=== PATIENT | female | born 1975 | race Caucasian/White ===

== ENCOUNTER 2017-05-05 08:17 | Inpatient (IN) | payer BC, OTHER ==
[~2017-05-05] VITALS: Ht 172.7 cm; Wt 58.5 kg
[2017-05-08] MEDS ORDERED: BUPRENORPHINE HCL 2 MG TAB.SUBL SL PRN (15:00)
[2017-05-08] MEDS ORDERED: HYDROXYZINE PAMOATE 25 MG CAPSULE PO PRN (15:00)
[2017-05-08] MEDS ORDERED: DIAZEPAM 5 MG TABLET PO PRN (15:00)
[2017-05-08] MEDS ORDERED: IBUPROFEN 600 MG TABLET PO PRN (15:00)
[2017-05-08] MEDS ORDERED: ONDANSETRON 4 MG/2 ML VIAL IM PRN (15:00)
[2017-05-08] MEDS ORDERED: THIAMINE HCL 200 MG/2 ML VIAL IM ONE (15:00)
[2017-05-08] MEDS ORDERED: diphenhydrAMINE 50 MG CAPSULE PO PRN (15:00)
[2017-05-08] MEDS ORDERED: CLONIDINE HCL 0.1 MG TABLET PO PRN (15:00)
[2017-05-08] MEDS ORDERED: METHOCARBAMOL 750 MG TABLET PO PRN (15:00)
[2017-05-08] MEDS ORDERED: DIAZEPAM 10 MG TABLET PO PRN ×2 (15:00)
[2017-05-08] MEDS ORDERED: MAG HYDROX/AL HYDROX/SIMETH 30 ML LIQUID UDC PO PRN (15:00)
[2017-05-08] MEDS ORDERED: ACETAMINOPHEN 325 MG TABLET PO PRN (15:00)
[2017-05-08] MEDS ORDERED: DICYCLOMINE HCL 20 MG TABLET PO PRN (15:00)
[2017-05-08] MEDS ORDERED: LORAZEPAM 2 MG/1 ML VIAL IM PRN (15:00)
[2017-05-08] MEDS ORDERED: LOPERAMIDE HCL 2 MG CAPSULE PO PRN ×2 (15:00)
[2017-05-08] MEDS ORDERED: ONDANSETRON ODT 4 MG TAB.RAPDIS SL PRN (15:00)
--- NOTE | 2017-05-08 15:30 | NUR ---
Intake assessment Pt seen down in intake, pt VS are stable, pt is cleared to come up to unit. Dr Wilcox notified of admission.
[2017-05-08 15:40] VITALS: BP 102/69
--- NOTE | 2017-05-08 15:40 | NUR ---
Admission Note Pt was admitted for ETOH, benzo and opiate dependence and methamphetamine abuse. Pt ambulated on to the unit with SERVER PROGRAMMER, during skin assessment, pt stated that she has a shingles rash. Dr Wilcox notified and pt placed on contact precautions. Pt noted to have several scabs on her bilateral hands and and open wound to her medial left ankle. Pt VS were: BP 102/69, HR 10, T: 98.3, R: 16, SpO2: 95% on RA. Pt appears to be intoxicated, COWS and CIWA not done per Dr Wilcox. Pt states she is 5'8'' and per scale she weighed 129 pounds. Pt stated that she has lost 20 pounds recently. Pt denies any allergies. Pt states that she has a PMHx of anxiety, depression and shingles. Pt states that she doesn't remember the exact date of her LBM, she says she had IBS-C. Pt states her LMP was 05/04/17. Pt denies any history of seizures. Pt states that she does not know her family medical history due to being adopted. Pt states that she does not have any children. Meds reconciled in med rec, pt brought in 2 bottles of medication. Pt states that she does not want the pneumococcal vaccine. Pt agreed to HIV testing. Pt states that her PCP is Dr Pérez and that she does not want him to be contacted regarding her admission. Pt is a poor historian, pt states that her is the person who has been dosing out her alcohol and other substances. Pt reports using the following substances, her confirmed the dosing of the followin. ETOH- Drinks 750-1500ml of wine or 350-500ml of vodka daily x about a month, last drink was a cup of vodka on 05/08/17. 2. Xanax- 4-6mg PO daily x about a month, last use was 1mg on 05/08/17. 3. Subutex- 12mg SL daily x about a month, last use was 4mg on 05/08/17. 4, methamphetamine- $30 via inhalation daily x about a month, last use was 05/05/17. Pt states that she smokes 1-2 packs of cigarettes a day since the age of 15. UDS was positive for benzo and methamphetamines. HCG was negative. Pt states that she went to [facility] detox about a year ago, and recently relapsed. Pt states that she was sober for 15 years, then relapsed shortly after she got . Pt stated that she has only been to a detox once, however pt also stated that she has been to multiple facilities, d/t pt's intoxicated state, she is unable to verify this information at this time. Pt oriented to unit and policies/procedures. Pt has no complaints at this time. Will continue to monitor pt. All needs addressed at this time. Pt placed on fall and seizure precautions.
[2017-05-08] MEDS ORDERED: GABA-534 PO (15:55)
[2017-05-08] MEDS ORDERED: MULT1TAB73 PO (15:55)
[2017-05-08] MEDS ORDERED: PARO25TA16 PO (15:55)
[2017-05-08] MEDS ORDERED: GABA600T2 PO (15:55)
[2017-05-08] MEDS ORDERED: LACT1CAP71 PO (15:55)
[2017-05-08] MEDS ORDERED: QUET100T PO (15:55)
[2017-05-08 16:00] VITALS: BP 104/72
[2017-05-08 16:29] LABS: *URINE HCG, QUAL NEGATIVE (NEGATIVE)
[2017-05-08 16:49] LABS: *AMPHETAMINE, URINE POSITIVE (NEGATIVE); *BARBITURATE, URINE NEGATIVE (NEGATIVE); *CANNABINOID, URINE NEGATIVE (NEGATIVE); *COCCAINE, URINE NEGATIVE (NEGATIVE); *OPIATE, URINE NEGATIVE (NEGATIVE); *PHENCYCLIDINE SCREEN,URINE NEGATIVE (NEGATIVE)
[2017-05-08] MEDS: DIAZEPAM 10 MG TABLET PO SCH ×2 (17:22→22:12)
--- NOTE | 2017-05-08 19:09 | NUR ---
End of shift note Pt was admitted for benzo, etoh, opiate and methamphetamine dependence. Pt denies any allergies, is a full code and on a regular diet. Pt has a PMhx of anxiety, depression and is on contact isolation for shingles. Pt started her valium taper and is scheduled to begin a subutex taper at 2100. Pt is currently sleeping in her bed. Pt is on fall and seizure precautions. All needs addressed at this time. SBAR report given to oncoming nurse. Pt drank 500ml of fluids, refused dinner, but had a few snacks. Pt had a recent COWS of 7 and CIWA of 11. Addendum: 05/09/17 at 0741 by MARY BURKETT RN Data Center Architect referral ordered by Dr Wilcox due weight loss of 20 pounds and BMI of 19.6
--- NOTE | 2017-05-08 19:50 | NUR ---
START OF SHIFT Received report from day shift nurse. Pt is lying in bed resting. She is a 41 yo female admitted to [facility] today for ETOH, BZD, and opioid dependence. She is A&O and ambulatory. NKA, full code status, and on a regular diet. Pt has a PMH of shingles, hernia repair, ovarian procedure, right wrist surgery, anxiety, and depression. She is on contact isolation precautions for shingles that is being treated with valtrex. On admission pt reported drinking wine 750-1500mL or vodka 350-500mL day, xanax 4-6mg per day, subutex 12mg per day, and methamphetamine $30 worth per day. 5 day valium taper started today. 5 day subutex taper to start tonight. Pt hand tremors, anxiety, and moist skin. Tapers due tonight. Fall and seizure precautions in place. Bed is down with call light in reach.
[2017-05-08 20:27] LABS: BASOPHILS % (AUTO) 0.7 % (0.0-2.0); EOSINOPHILS # (AUTO) 0.2 K/uL (0.0-0.7); EOSINOPHILS % (AUTO) 3.9 % (0.0-7.0); HEMATOCRIT 42.6 % (37-47); HEMOGLOBIN 14.1 G/DL (12.0-16.0); LYMPHOCYTES # (AUTO) 1.6 K/UL (0.8-4.8); LYMPHOCYTES % (AUTO) 33.3 % (20.5-51.5); MEAN CORPUSCULAR HEMOGLOBIN 31.4 UUG (27.0-31.0); MEAN CORPUSCULAR HGB CONC 33 g/dL (32.0-37.0); MEAN CORPUSCULAR VOLUME 94.9 FL (81.0-99.0); MONOCYTES # (AUTO) 0.4 K/UL (0.1-1.30); MONOCYTES % (AUTO) 9.5 % (0.0-11.0); NEUTROPHILS # (AUTO) 2.5 K/UL (1.8-8.9); NEUTROPHILS % (AUTO) 52.6 % (38.5-71.5); PLATELET COUNT (AUTO) 225 K/UL (150-450); RED BLOOD CELL COUNT(AUTO) 4.49 MIL/UL (4.2-5.4); WHITE BLOOD COUNT (AUTO) 4.7 K/UL (4.0-11.2)
[2017-05-08 20:30] VITALS: BP 93/62
[2017-05-08 20:37] LABS: BILIRUBIN,TOTAL 0.9 mg/dL (0.2-1.0); CREATININE 0.8 mg/dL (0.6-1.3); MAGNESIUM 1.8 mg/dL (1.8-2.4); POTASSIUM 3.7 mmol/L (3.5-5.1)
[2017-05-08] MEDS ORDERED: BUPRENORPHINE HCL 2 MG TAB.SUBL SL SCH (21:00)
--- NOTE | 2017-05-08 21:00 | NUR ---
Subutex non-administered First subutex dose non-administered. Pt's COWS scores is 6. B/P 93/62 and HR 86.
[2017-05-08] MEDS: VALACYCLOVIR HCL 500 MG TABLET PO SCH (21:56)
[2017-05-08] MEDS: GABAPENTIN 300 MG CAPSULE PO SCH (22:12)
[2017-05-09] VITALS: BP 95/64
--- NOTE | 2017-05-09 | NUR ---
0000 CIWA and COWS deferred CIWA and COWS ordered Q4HWA. Pt is lying in bed resting with eyes closed. Respirations even and unlabored. Vital signs obtained. Safety measures in place.
[2017-05-09 04:00] VITALS: BP 90/60
--- NOTE | 2017-05-09 07:02 | NUR ---
END OF SHIFT Report provided to day shift nurse. Pt is lying in bed resting. She is a 41 yo female admitted to [facility] on 05/08 for ETOH, BZD, and opioid dependence. She is A&O and ambulatory. NKA, full code status, and on a regular diet. Pt has a PMH of shingles, hernia repair, ovarian procedure, right wrist surgery, anxiety, and depression. She is on contact isolation precautions for shingles that is being treated with valtrex. 5 day Ativan taper started 05/08. Subutex taper was scheduled to start at 2100 but was held due to COWS score not meeting criteria. Other scheduled medications administered. No PRN's given. Last COWS 6 and CIWA 7 before medication administration. She slept throughout the night for a total of 8 hours and drank 355mL. Encouraged fluids. Fall and seizure precautions in place. Bed is down with call light in reach.
--- NOTE | 2017-05-09 07:50 | NUR ---
START OF SHIFT NOTE Received report from night nurse, 41 year old female admitted to [facility] for ETOH, BENZO, and Opioid dependence. NKA, full code status, and on a regular diet. Pt has a PMH of shingles, hernia repair, ovarian procedure, right wrist surgery, anxiety, and depression. Pt is on 5 day Subutex. Per endorsement pt is on contact isolation precautions for shingles that is being treated with Valtrex. Per endorsement pt were not given any PRN and scheduled Subutex dose was held due to low COWS score. Last COWS-6, CIWA-7 slept for 8 hours. Received pt asleep in bed responsive to verbal and tactile stimuli. Breathing normal no SOB noted. Skin intact warm and dry to touch. All safety measures in place, Call light within reach. Will cont to monitor.
[2017-05-09 08:00] VITALS: BP 104/66
[2017-05-09] MEDS: GABAPENTIN 300 MG CAPSULE PO SCH ×3 (08:47→21:22)
[2017-05-09] MEDS: DIAZEPAM 10 MG TABLET PO SCH ×3 (08:47→21:20)
[2017-05-09] MEDS: MULTIVITAMINS,THERAPEUTIC TABLET PO SCH (08:47)
[2017-05-09] MEDS: FOLIC ACID 1 MG TABLET PO SCH (08:47)
[2017-05-09] MEDS: VALACYCLOVIR HCL 500 MG TABLET PO SCH ×2 (08:48→21:23)
[2017-05-09] MEDS: BUPRENORPHINE HCL 2 MG TAB.SUBL SL SCH ×3 (08:48→21:20)
[2017-05-09] MEDS: THIAMINE HCL 100 MG TABLET PO SCH (08:48)
[2017-05-09] MEDS ORDERED: TUBERCULIN,PURIF.PROT.DERIV. 5 TU/0.1 ML TEST ID ONE (09:00)
[2017-05-09] MEDS ORDERED: DIAZEPAM 10 MG TABLET PO SCH (09:00)
[2017-05-09] MEDS ORDERED: BUPRENORPHINE HCL 2 MG TAB.SUBL SL SCH (09:00)
[2017-05-09] MEDS: MIRALAX 17 GM POWD.PACK PO PRN (10:11)
--- NOTE | 2017-05-09 10:11 | NUR ---
PRN MIRALAX/BENTYL Pt is c/o of stomach cramps and constipation. Pt provided with non pharmacological intervention with no relief. Administered PRN Bentyl 20mg Po, Miralax Po as ordered. Will cont to monitor and reassess.
--- NOTE | 2017-05-09 11:11 | NUR ---
REASSESSMENT Pt reported medication effective stomach cramps subside medication effective, still no BM. Will cont to monitor.
[2017-05-09 12:00] VITALS: BP 107/62
[2017-05-09 16:00] VITALS: BP 90/60
--- NOTE | 2017-05-09 19:13 | NUR ---
END OF SHIFT NOTE Pt started on 5 days Subutex /5 day Valium taper tolerating well. Pt presented with anxiousness stomach cramps,constipation. Pt given PRN Bentyl/Miralax. Last CIWA-5, COWS-5. Pt rested most of the time. Pt is cont on contact isolation precautions for shingles that is being treated with Valtrex. Vital signs WNL. Encouraged PO fluids as tolerated. All needs met. Safety measures in place, Call light within reach. Pt endorsed to night nurse in stable condition.
--- NOTE | 2017-05-09 19:30 | NUR ---
START OF SHIFT Pt is a 41 year old female admitted for ETOH, BENZO, and Opioid dependence. NKA, full code status, and on a regular diet. Pt has a PMH of shingles, hernia repair, ovarian procedure, right wrist surgery, anxiety, and depression. Pt continues on Valium and Subutex taper as ordered,tolerating well. Per endorsement Pt is on contact isolation precautions for shingles and is being treated with Valtrex. Last CIWA-5, COWS-5. Encouraged PO fluids as tolerated. All needs met.All safety measures in place, Call light within reach.Will continue to monitor.
[2017-05-09 20:00] VITALS: BP 111/70
[2017-05-09] MEDS: QUETIAPINE FUMARATE 100 MG TABLET PO SCH (21:20)
[2017-05-10] VITALS: BP 95/60
[2017-05-10 04:00] VITALS: BP 92/58
--- NOTE | 2017-05-10 06:39 | NUR ---
END OF SHIFT Pt is a 41 year old female admitted for ETOH, BENZO, and Opioid dependence. NKA, full code status, and on a regular diet. Pt has a PMH of shingles, hernia repair, ovarian procedure, right wrist surgery, anxiety, and depression. Pt continues on Valium and Subutex taper as ordered,tolerating well. Pt is on contact isolation precautions for shingles and is being treated with Valtrex. Last CIWA-3, COWS-2. Encouraged PO fluids as tolerated.No PRN meds given,Pt slept 8 hrs,fluid intake was 300 mls,voided x 1. All needs met.All safety measures in place, Call light within reach.Will continue to monitor.
[2017-05-10 08:00] VITALS: BP 105/64
--- NOTE | 2017-05-10 08:03 | NUR ---
START OF SHIFT NOTE Received report from night nurse, Pt is 41 year old female admitted to [facility] for ETOH, BENZO, and Opioid dependence. NKA, full code status, and on a regular diet. Pt has a PMH of shingles, hernia repair, ovarian procedure, right wrist surgery, anxiety, and depression. Pt is cont on 5 day Subutex/ 5 day Valium taper. Pt is also cont on contact isolation precautions for shingles that is being treated with Valtrex. Per endorsement pt were not given any PRN, Last COWS-2, CIWA-3 slept for 8 hours. Pt received in room, alert and oriented x4, educated regarding plan of care for the day and medication regimen with good verbal understanding. Fall and seizure precautions observed and in place. Will continue to monitor.
[2017-05-10] MEDS: MULTIVITAMINS,THERAPEUTIC TABLET PO SCH (08:32)
[2017-05-10] MEDS: DIAZEPAM 5 MG TABLET PO SCH ×4 (08:32→21:59)
[2017-05-10] MEDS: THIAMINE HCL 100 MG TABLET PO SCH (08:32)
[2017-05-10] MEDS: FOLIC ACID 1 MG TABLET PO SCH (08:32)
[2017-05-10] MEDS: PAROXETINE HCL 20 MG TABLET PO SCH (08:32)
[2017-05-10] MEDS: GABAPENTIN 300 MG CAPSULE PO SCH ×3 (08:33→21:59)
[2017-05-10] MEDS: VALACYCLOVIR HCL 500 MG TABLET PO SCH ×2 (08:35→21:58)
[2017-05-10] MEDS ORDERED: BUPRENORPHINE HCL 2 MG TAB.SUBL SL SCH ×2 (09:00)
[2017-05-10] MEDS ORDERED: DIAZEPAM 10 MG TABLET PO SCH (09:00)
[2017-05-10 11:10] LABS: HEPATITIS B SURFACE AG Negative (Negative)
[2017-05-10 12:00] VITALS: BP 99/73
[2017-05-10] MEDS: BACLOFEN 10 MG TABLET PO SCH ×2 (14:18→21:59)
[2017-05-10] MEDS: BUPRENORPHINE HCL 2 MG TAB.SUBL SL SCH ×2 (14:19→21:59)
[2017-05-10 16:00] VITALS: BP 96/62
--- NOTE | 2017-05-10 19:08 | NUR ---
END OF SHIFT NOTE Pt cont on 5 days Subutex /5 day Valium taper tolerating well. Last CIWA-, COWS-5. Pt rested most of the time. Pt is cont on contact isolation precautions for shingles that is being treated with Valtrex no s/s of adverse reaction noted. Vital signs WNL. Encouraged PO fluids as tolerated. All needs met. Safety measures in place, Call light within reach. Pt endorsed to night nurse in stable condition. Addendum: 05/10/17 at 1919 by MELISSA MUSA LVN ERROR IN CHARTING Pt's last CI-, -4.
--- NOTE | 2017-05-10 19:30 | NUR ---
START OF SHIFT Pt is a 41 year old female admitted for ETOH, BENZO, and Opioid dependence. NKA, full code status, and on a regular diet. Pt has a PMH of shingles, hernia repair, ovarian procedure, right wrist surgery, anxiety, and depression. Pt continues on Valium and Subutex taper as ordered,tolerating well. Per endorsement Pt continues to be on contact isolation for shingles and is being treated with Valtrex. Last CIWA-5, COWS-5.Pt received resting in bed,in a stable condition.Encouraged PO fluids as tolerated. All needs met.All safety measures in place, Call light within reach.Will continue to monitor.
[2017-05-10 20:00] VITALS: BP 95/64
[2017-05-10] MEDS: QUETIAPINE FUMARATE 100 MG TABLET PO SCH (21:59)
[2017-05-11] VITALS: BP 92/59
[2017-05-11 04:00] VITALS: BP 80/57
--- NOTE | 2017-05-11 06:44 | NUR ---
END OF SHIFT Pt is a 41 year old female admitted for ETOH, BENZO, and Opioid dependence. NKA, full code status, and on a regular diet. Pt has a PMH of shingles, hernia repair, ovarian procedure, right wrist surgery, anxiety, and depression. Pt continues on Valium and Subutex taper as ordered,tolerating well. Per endorsement Pt continues to be on contact isolatio for shingles and is being treated with Valtrex. Last CIWA-1, COWS-1.Pt slept 9 hrs;fluid intake was 2802 mls,voided x 3.No PRN meds given. All needs met.All safety measures in place, Call light within reach.Will continue to monitor.
--- NOTE | 2017-05-11 07:35 | NUR ---
START OF SHIFT NOTE Received report from night nurse, Pt is 41 year old female admitted to [facility] for ETOH, BENZO, and Opioid dependence. NKA, full code status, and on a regular diet. Pt has a PMH of shingles, hernia repair, ovarian procedure, right wrist surgery, anxiety, and depression. Pt is cont on 5 day Subutex/ 5 day Valium taper. Pt is also cont on contact isolation precautions for shingles that is being treated with Valtrex. Per endorsement pt were not given any PRN, Last COWS-1, CIWA-1 slept for 9 hours. Pt received in room, alert and oriented x4, educated regarding plan of care for the day and medication regimen with good verbal understanding. Fall and seizure precautions observed and in place. Will continue to monitor.
[2017-05-11 08:00] VITALS: BP 100/62
[2017-05-11] MEDS: FOLIC ACID 1 MG TABLET PO SCH (08:53)
[2017-05-11] MEDS: VALACYCLOVIR HCL 500 MG TABLET PO SCH ×2 (08:54→21:12)
[2017-05-11] MEDS: MULTIVITAMINS,THERAPEUTIC TABLET PO SCH (08:54)
[2017-05-11] MEDS: PAROXETINE HCL 20 MG TABLET PO SCH (08:54)
[2017-05-11] MEDS: BACLOFEN 10 MG TABLET PO SCH ×2 (08:54→14:49)
[2017-05-11] MEDS: GABAPENTIN 300 MG CAPSULE PO SCH ×3 (08:54→21:03)
[2017-05-11] MEDS: DIAZEPAM 5 MG TABLET PO SCH ×3 (08:54→21:03)
[2017-05-11] MEDS: THIAMINE HCL 100 MG TABLET PO SCH (08:54)
[2017-05-11] MEDS: BUPRENORPHINE HCL 2 MG TAB.SUBL SL SCH ×3 (08:54→21:03)
[2017-05-11] MEDS ORDERED: BUPRENORPHINE HCL 2 MG TAB.SUBL SL SCH ×2 (09:00→15:00)
[2017-05-11] MEDS ORDERED: DIAZEPAM 5 MG TABLET PO SCH (09:00)
[2017-05-11] MEDS: MIRALAX 17 GM POWD.PACK PO PRN (09:02)
--- NOTE | 2017-05-11 09:02 | NUR ---
PRN MIRALAX Pt is c/o of constipation. Pt provided with non pharmacological intervention with no relief. Administered PRN Miralax Po as ordered. Will cont to monitor and reassess.
[2017-05-11 12:00] VITALS: BP 90/58
[2017-05-11 16:00] VITALS: BP 109/59
[2017-05-11] MEDS ORDERED: BISACODYL 10 MG SUPP.RECT RC PRN (16:30)
[2017-05-11] MEDS ORDERED: BISACODYL 5 MG TABLET.DR PO PRN (16:30)
[2017-05-11] MEDS ORDERED: FLEET ENEMA 133 ML BOTTLE RC PRN (16:30)
--- NOTE | 2017-05-11 18:50 | NUR ---
END OF SHIFT NOTE Pt cont on 5 days Subutex /5 day Valium taper tolerating well. Last CIWA-4, COWS-4. Pt was c/o of constipation PRN Miralax given as ordered. Will endorse to night nurse to follow up. Pt is cont on contact isolation precautions for shingles that is being treated with Valtrex no s/s of adverse reaction noted. Vital signs WNL. Encouraged PO fluids as tolerated. All needs met. Safety measures in place, Call light within reach. Pt endorsed to night nurse in stable condition.
--- NOTE | 2017-05-11 18:50 | NUR ---
START OF SHIFT NOTE: Patient endorsed to day shift nurse in stable condition. Report given. Patient is a 41 year old female admitted to [facility] for Benzodiazepines, Alcohol, Subutex, and Methamphetamines dependence on 05/08/2017 continue 5 Day Ativan and 5 Day Subutex Taper since 05/09/2017 which tolerated well without ASE. Patient reports NKA. Patient is on Full Code, Regular Diet. Patient is on Fall, continue on contact Isolation for Shingles and Seizures Precautions. PMH:" Anxiety, Depression, Shingles on Right Back, Hernia Repair, Ovarian Procedure, Right Wrist Surgery, Tobacco dependence, and Substance abuse". Upon endorsement, patient is alert and oriented x4, with steady gait. Speech is soft and clear. VS WNL. Respirations unlabored and even. Lungs Sounds are clear. Patient denies SOB and chest pain. Abdomen is soft and non-tender. Bowel Sounds active in all four quadrants. Skin is not intact. Patient has Shingles on right Back, patient is being treated with Valtrex which tolerated well without ASE. Patient has scabs on both hands, and open wound on the medial left ankle. Skin is warm and dry to touch. COWS 6, CIWA 7. Patient presented with anxiety, agitation, nervousness, tremors, barely sweating, restless legs, and fatigue. Patient denies SI/HI. Encouraged fluids as tolerated. All needs met. Safety measures on place. Call light within reach, bed in lowest position and locked, padded rails up bilaterally. Will continue to monitor closely. Addendum: 05/12/17 at 0232 by NORMA UMANZOR RN Patient endorsed by day shift nurse in stable condition. Report received.
[2017-05-11 20:00] VITALS: BP 102/67
[2017-05-11] MEDS ORDERED: DOCUSATE SODIUM 250 MG CAPSULE PO ONE (21:00)
[2017-05-11] MEDS: QUETIAPINE FUMARATE 100 MG TABLET PO SCH (21:03)
[2017-05-11] MEDS: BACLOFEN 20 MG TABLET PO SCH (21:03)
[2017-05-11] MEDS: DICYCLOMINE HCL 20 MG TABLET PO SCH (21:03)
[2017-05-12] VITALS: BP 91/58
[2017-05-12 04:00] VITALS: BP 96/58
--- NOTE | 2017-05-12 06:52 | NUR ---
END OF SHIFT NOTE: Patient endorsed to day shift nurse in stable condition. Report given. Patient is a 41 year old female admitted to [facility] for Benzodiazepines, Alcohol, Subutex, and Methamphetamines dependence on 05/08/2017, continue 5 Day Ativan and 5 Day Subutex Taper since 05/09/2017 which tolerated well without ASE. Patient reports NKA. Patient is on Full Code, Regular Diet. Patient is on Fal and Seizures Precautions. Patient continue contact Isolation for Shingles. Patients denies Seizures Hx r/t withdrawal from substances. Patient is calm and cooperative. Patient denies SOB, cough and chest pain. VS at 0400: T: 98.2; BP: 98/58; HR: 72; RR: 14; O2 SAT: 97%. Pain level: "0/10". Respirations unlabored and even. Patient denies SOB and chest pain. Skin is warm and dry to touch. Skin is not intact. Patient has Shingles on right Back, and he is being treated with Valtrex which tolerated well without ASE. Patient's healed scabs on both hands, and open wound on the medial left ankle. Last COWS 4, CIWA 3 at 0400. Last night nurse patient presented with the following symptoms of withdrawal: anxiety, agitation, nervousness, tremors that can be felt, diaphoresis, restless legs, and fatigue. Patient denies any SI/HI. No PRN Medications administrated last night nurse. Patient slept 6 hours, intake 2880 ml, voided x3. Encouraged patient to attend group therapies/sessions to learn new coping skills to prevent relapse. All needs met. Safety measures on place. Call light within reach, bed in lowest position and locked, padded rails up bilaterally rails up bilaterally
[2017-05-12 08:00] VITALS: BP 90/60
--- NOTE | 2017-05-12 08:15 | NUR ---
START OF SHIFT: RECEIVED PT A/O X 4. SHE STATES SHE IS MILDLY ANXIOUS AND HAS SOME MILD BODY ACHES AND STATES THE DETOX MEDS ARE EFFECTIVE. VALIUM/SUBUTEX TAPER IN PROGRESS. CIWA 1 COWS 2 SHE STATES HER APPETITE IS BETTER AND SHE IS SLEEPING OK. CONTACT ISOLATION NOTED FOR SHINGLES AND VALTREX GIVEN ORDERED. ENCOURAGED GROUP ATTENDANCE TO IMPROVE COPING SKILLS AND PREVENT RELAPSE. WILL CONTINUE TO MONITOR AND OFFER SUPPORT.
[2017-05-12] MEDS ORDERED: DIAZEPAM 5 MG TABLET PO SCH (09:00)
[2017-05-12] MEDS ORDERED: BUPRENORPHINE HCL 2 MG TAB.SUBL SL SCH (09:00)
[2017-05-12] MEDS: FOLIC ACID 1 MG TABLET PO SCH (09:43)
[2017-05-12] MEDS: DIAZEPAM 5 MG TABLET PO SCH ×2 (09:43→20:59)
[2017-05-12] MEDS: MULTIVITAMINS,THERAPEUTIC TABLET PO SCH (09:43)
[2017-05-12] MEDS: GABAPENTIN 300 MG CAPSULE PO SCH ×3 (09:43→20:58)
[2017-05-12] MEDS: DICYCLOMINE HCL 20 MG TABLET PO SCH ×3 (09:43→20:59)
[2017-05-12] MEDS: THIAMINE HCL 100 MG TABLET PO SCH (09:43)
[2017-05-12] MEDS: BUPRENORPHINE HCL 2 MG TAB.SUBL SL SCH ×2 (09:44→20:59)
[2017-05-12] MEDS: DOCUSATE SODIUM 250 MG CAPSULE PO SCH (09:44)
[2017-05-12] MEDS: PAROXETINE HCL 20 MG TABLET PO SCH (09:44)
[2017-05-12] MEDS: BACLOFEN 20 MG TABLET PO SCH ×3 (09:44→20:59)
[2017-05-12] MEDS: VALACYCLOVIR HCL 500 MG TABLET PO SCH ×2 (09:48→21:02)
[2017-05-12 12:00] VITALS: BP 114/68
[2017-05-12 16:00] VITALS: BP 118/70
--- NOTE | 2017-05-12 16:30 | NUR ---
1500 MEDS HELD. CIWA AND COWS DEFERRED AT 1600 PT WAS SLEEPING. CALL NARANJO IN REACH. BED LOW AND LOCKED.
--- NOTE | 2017-05-12 18:37 | NUR ---
START OF SHIFT NOTE: Patient endorsed by day shift nurse in stable condition. Report received. Patient is a 41 year old female admitted to [facility] for Benzodiazepines, Alcohol, Subutex, and Methamphetamines dependence on 05/08/2017, completed ordered 5 Day Ativan and 5 Day Subutex Taper which tolerated well without ASE. Patient reports NKA. Patient is Full Code, Regular Diet. Patient is contact Isolation for Shingles. Patient is Fall and Seizures Precautions. Patients denies Seizures Hx r/t withdrawal from substances. Upon endorsement, patient is on the room alert and oriented x4. Patient is calm and cooperative with steady gait. Speech is soft and clear. VS WNL. Respirations unlabored and even. Lungs Sounds are clear throughout. Patient denies SOB, cough, and chest pain. Abdomen is soft and non-tender. Bowel Sounds active in all four quadrants. Skin is warm and dry to touch. Skin is not intact. Patient has Shingles on right Back, and she is being treated with Valtrex which tolerated well without ASE. Patient's healed scabs on both hands, and healed wound on the medial left ankle. COWS 3, CIWA 3. Patient presented with anxiety, agitation, nervousness, barely sweating, restless legs, and fatigue. Patient denies SI/HI. Encouraged fluids as tolerated. Encouraged patient to attend group therapies/sessions to learn new coping skills to prevent relapse. All needs met. Safety measures on place. Call light within reach, bed in lowest position and locked, padded rails up bilaterally rails up bilaterally.
--- NOTE | 2017-05-12 18:37 | NUR ---
END OF SHIFT: PT CONTINUES ON VALIUM/SUBUTEX TAPER. LAST CIWA AND COWS DEFERRED AND 1500 MEDS HELD PT WAS SLEEPING. COWS 2 AND CIWA 2 AT NOON. SHE C/O SOME ANXIETY AND MILD BODY ACHE AND STATES DETOX MEDS ARE EFFECTIVE. NO PRNS GIVEN ON SHIFT. SHE CONTINUES ON CONTACT ISOLATION FOR SHINGLES AND ACYCLOVIR ADMINISTERED. SHE ATTENDED SOME GROUPS. WILL PASS SHIFT REPORT TO [facility] NIGHT NURSE.
[2017-05-12 20:00] VITALS: BP 109/62
[2017-05-12] MEDS: QUETIAPINE FUMARATE 100 MG TABLET PO SCH (20:59)
[2017-05-12] MEDS: MIRALAX 17 GM POWD.PACK PO PRN (21:00)
--- NOTE | 2017-05-12 21:00 | NUR ---
PRN MIRALAX 17 GM POWD.PACK PO ADMINISTRATION Patient c/o of constipation. PRN Miralax 17 gm Powd.Pack PO administrated as ordered. Patient tolerated well. Encouraged fluids as tolerated. All needs met. Safety measures on place. Call light within reach, bed in lowest position and locked, padded rails up bilaterally rails up bilaterally. Will continue to monitor closely.
--- NOTE | 2017-05-12 22:00 | NUR ---
RE-ASSESSMENT PRN Miralax PO was non-effective. Patient has not had any bowel movement since administration of medication. Encouraged fluids as tolerated. All needs met. Safety measures on place. Call light within reach, bed in lowest position and locked, padded rails up bilaterally rails up bilaterally.
--- NOTE | 2017-05-13 | NUR ---
VS REFUSED AND COWS/CIWA DEFERRED Patient refused to be woken up for 0000 VS. COWS/CIWA deferred d/t patient sleeping to assess while patient is awake. Safety measures on place by hospital policy: Call light within reach; Bed in lowest position and locked; side rails up x2. Will continue to monitor.
[2017-05-13 04:00] VITALS: BP 90/59
--- NOTE | 2017-05-13 06:48 | NUR ---
END OF SHIFT NOTE: Patient endorsed to day shift nurse in stable condition. Report given. Patient is a 41 year old female admitted to [facility] for Benzodiazepines, Alcohol, Subutex, and Methamphetamines dependence on 05/08/2017, completed 5 Day Ativan and 5 Day Subutex Taper which tolerated well without ASE. Patient reports NKA. Patient is Full Code, Regular Diet. Patient is Fall and Seizures Precautions. Patient continue contact Isolation for Shingles. Patients denies Seizures Hx r/t withdrawal from substances. Last VS at 0400: T: 97.7; BP: 90/59; HR: 73; RR: 16; O2 SAT: 97%. Low back and stomach pain level: "5/10". Respirations unlabored and even. Patient denies SOB and chest pain. Skin is warm and dry to touch. Skin is not intact. Patient has Shingles on right Back, and he is being treated with Valtrex which tolerated well without ASE. Patient's healed scabs on both hands, and open wound on the medial left ankle. Last COWS 4, CIWA 4 at 0400. Last call center agent patient presented with the following symptoms of withdrawal: anxiety, agitation, nervousness, stomach cramps, tremors that can be felt, diaphoresis, restless legs, low back pain, and fatigue. Patient denies any SI/HI. PRN Miralax PO administrated last call center agent. Patient slept 5 hours, intake 1,356 ml, voided x2. Encouraged patient to attend group therapies/sessions to learn new coping skills to prevent relapse. All needs met. Safety measures on place. Call light within reach, bed in lowest position and locked, padded rails up bilaterally rails up bilaterally
[2017-05-13 08:00] VITALS: BP 100/60
--- NOTE | 2017-05-13 08:05 | NUR ---
START OF SHIFT: RECEIVED PT A/O X 4. SHE STATES SHE IS MILDLY ANXIOUS AND HAS SOME MILD BODY ACHES AND STATES THE DETOX MEDS ARE EFFECTIVE. VALIUM/SUBUTEX TAPER IN PROGRESS. CIWA 1 COWS 3 SHE C/O CONSTIPATION AND STATES MIRALAX HAS NOT BEEN EFFECTIVE. CONTACT ISOLATION NOTED FOR SHINGLES AND VALTREX GIVEN ORDERED. ENCOURAGED INCREASED FLUIDS. WILL CONTINUE TO MONITOR AND OFFER SUPPORT.
[2017-05-13] MEDS ORDERED: BUPRENORPHINE HCL 2 MG TAB.SUBL SL SCH ×2 (09:00)
[2017-05-13] MEDS ORDERED: DIAZEPAM 5 MG TABLET PO SCH (09:00)
[2017-05-13] MEDS: VALACYCLOVIR HCL 500 MG TABLET PO SCH (09:25)
[2017-05-13] MEDS: FOLIC ACID 1 MG TABLET PO SCH (09:25)
[2017-05-13] MEDS: BACLOFEN 20 MG TABLET PO SCH ×3 (09:26→21:45)
[2017-05-13] MEDS: GABAPENTIN 300 MG CAPSULE PO SCH ×3 (09:26→21:46)
[2017-05-13] MEDS: THIAMINE HCL 100 MG TABLET PO SCH (09:26)
[2017-05-13] MEDS: MULTIVITAMINS,THERAPEUTIC TABLET PO SCH (09:27)
[2017-05-13] MEDS: DICYCLOMINE HCL 20 MG TABLET PO SCH ×3 (09:27→21:45)
[2017-05-13] MEDS: PAROXETINE HCL 20 MG TABLET PO SCH (09:27)
[2017-05-13] MEDS: DOCUSATE SODIUM 250 MG CAPSULE PO SCH (09:27)
[2017-05-13 12:00] VITALS: BP 95/61
[2017-05-13 16:00] VITALS: BP 118/63
[2017-05-13] MEDS ORDERED: GABA-534 PO ×2 (18:16)
[2017-05-13] MEDS ORDERED: BACL20TA PO (18:16)
[2017-05-13] MEDS ORDERED: VALA500T PO (18:16)
[2017-05-13] MEDS ORDERED: DICY20TA28 PO (18:16)
--- NOTE | 2017-05-13 18:55 | NUR ---
END OF SHIFT: PT COMPLETED VALIUM/SUBUTEX TAPER. LAST CIWA 1 COWS 1 SHE C/O SOME MILD ANXIETY. NO PRNS GIVEN ON SHIFT. SHE CONTINUES ON CONTACT ISOLATION FOR SHINGLES AND ACYCLOVIR ADMINISTERED. DISCHARGE PLANNING FOR DISCHARGE SCHEDULED 05/14 .SHE ATTENDED GROUPS. WILL PASS SHIFT REPORT TO ONCOMING NIGHT NURSE.
[2017-05-13 19:54] LABS: *AMPHETAMINE, URINE NEGATIVE (NEGATIVE); *BARBITURATE, URINE NEGATIVE (NEGATIVE); *CANNABINOID, URINE NEGATIVE (NEGATIVE); *COCCAINE, URINE NEGATIVE (NEGATIVE); *OPIATE, URINE NEGATIVE (NEGATIVE); *PHENCYCLIDINE SCREEN,URINE NEGATIVE (NEGATIVE)
[2017-05-13 20:00] VITALS: BP 99/58
--- NOTE | 2017-05-13 20:05 | NUR ---
START OF SHIFT Received report from day shift nurse. Pt attended a group meeting and returned to her room after. She is a 41 yo female admitted to [facility] on 05/08 for ETOH, BZD, and opiate dependence. She is A&O x4 and ambulatory. Pt is ordered isolation precautions due to shingles. NKA, full code status, and on a regular diet. She has a PMH of shingles, anxiety, depression, hernia repair, ovarian procedure, and right wrist surgery. On admission she admitted to using wine 750-1500mL per day or vodka 350-500mL per day, xanax 4-6mg per day, subutex 12mg per day, and methamphetamine $30 per day. Pt completed a 5 day subutex and 5 day valium taper and is scheduled for discharge tomorrow. Pt reports feeling anxious. Minimal other s/s of withdrawal noted. She is cooperative with treatment. Fall precautions ordered. Bed is down with call light in reach.
[2017-05-13] MEDS: QUETIAPINE FUMARATE 100 MG TABLET PO SCH (21:46)
--- NOTE | 2017-05-13 21:47 | NUR ---
PRN Fleets enema Pt reports no BM in several days. Encouraged fluids. PRN Fleets enema administered.
[2017-05-14] VITALS: BP 83/50
--- NOTE | 2017-05-14 | NUR ---
0000 COWS and CIWA deferred COWS and CIWA ordered Q4HWA. Pt is lying in bed resting with eyes closed. Vital signs obtained. Safety measures in place.
[2017-05-14 04:00] VITALS: BP 98/60
--- NOTE | 2017-05-14 04:00 | NUR ---
0400 COWS and CIWA deferred COWS and CIWA ordered Q4HWA. Pt is lying in bed resting with eyes closed. Vital signs obtained. Safety measures in place.
--- NOTE | 2017-05-14 07:00 | NUR ---
start of shift note: received pt from maintenance technician 3rd shift nurse, pt is in stable condition at this time. no s/s of pain or discomfort. pt is admitted to [facility] for opiate/meth/etoh/benzo withdrawal/dependence. pt will be discharged today. will assist pt in discharging and will continue to monitor pt for any changes.
--- NOTE | 2017-05-14 07:16 | NUR ---
END OF SHIFT Report provided to day shift nurse. Pt is lying in bed resting. She is a 41 yo female admitted to [facility] on 05/08 for ETOH, BZD, and opiate dependence. She is A&O and ambulatory. Pt is ordered isolation precautions due to shingles. NKA, full code status, and on a regular diet. She has a PMH of shingles, anxiety, depression, hernia repair, ovarian procedure, and right wrist surgery. On admission she admitted to using wine 750-1500mL per day or vodka 350-500mL per day, xanax 4-6mg per day, subutex 12mg per day, and methamphetamine $30 per day. Pt completed a 5 day subutex and 5 day valium taper and is scheduled for discharge today.
[2017-05-14] MEDS: MULTIVITAMINS,THERAPEUTIC TABLET PO SCH (08:43)
[2017-05-14] MEDS: THIAMINE HCL 100 MG TABLET PO SCH (08:43)
[2017-05-14] MEDS: FOLIC ACID 1 MG TABLET PO SCH (08:44)
[2017-05-14] MEDS: GABAPENTIN 300 MG CAPSULE PO SCH (08:44)
[2017-05-14] MEDS: DOCUSATE SODIUM 250 MG CAPSULE PO SCH (08:44)
[2017-05-14] MEDS: BACLOFEN 20 MG TABLET PO SCH (08:44)
[2017-05-14] MEDS: DICYCLOMINE HCL 20 MG TABLET PO SCH (08:44)
[2017-05-14] MEDS: PAROXETINE HCL 20 MG TABLET PO SCH (08:44)
--- NOTE | 2017-05-14 09:45 | NUR ---
discharge note: pt left the unit in stable condition no s/s of pain, discomfort or any withdrawal symptoms. pt teaching was administered and pt verbalized understanding. all personal belongings were returned. pt will pt transferred to the [facility] via own transportation
== END 2017-05-14 09:45 | disposition home or self-care (01) | DRG 895 ==
LOC: SRC 05-08 14:16
PROVIDERS: ADMIT Internal Medicine; ATTEND Internal Medicine
DX: F10.230 Alcohol dependence with withdrawal, uncomplicated (principal); E87.3 Alkalosis; B02.29 Other postherpetic nervous system involvement; F15.221 Other stimulant dependence with intoxication delirium; K70.10 Alcoholic hepatitis without ascites; F31.9 Bipolar disorder, unspecified; F15.288 Other stimulant dependence with other stimulant-induced disorder; F11.23 Opioid dependence with withdrawal; F13.230 Sedative, hypnotic or anxiolytic dependence with withdrawal, uncomplicated; Y90.9 Presence of alcohol in blood, level not specified; Z79.899 Other long term (current) drug therapy; Z91.14 Patient's other noncompliance with medication regimen; E86.0 Dehydration; G47.00 Insomnia, unspecified; K59.03 Drug induced constipation; F17.210 Nicotine dependence, cigarettes, uncomplicated
CPT/HCPCS: 36415; 70030-TC; 80307; 80324; 80346; 83690; 83735; 84703; 85025; 86580; 86592; 86705; 86803; 87340; 87806; A4663; G0480; J3411

== ENCOUNTER 2017-07-28 10:20 | Inpatient (IN) | payer BC, OTHER ==
[~2017-07-28] VITALS: Ht 172.7 cm; Wt 50.3 kg
[~2017-07-28 10:20] MED LIST: BACL20TA PO; DICY20TA28 PO; GABA-534 PO; LACT1CAP71 PO; MULT1TAB73 PO; PARO25TA16 PO; QUET100T PO; VALA500T PO
--- NOTE | 2017-07-28 10:45 | NUR ---
PREADMISSION NOTE 41 year old female admitting for ETOH dependence. Vitals pulse 122, BP 109/72, 98.6 temp, RR 18, O2 sat 97 percent. Pt states she drinks 1.5 liters vodka per day for last 2 months, last drink this morning. Denies other substance use. Pt stating she is very anxious. Pt leaning over in chair, appears to be in pain but denies pain. History of admission to [facility] 05/2017. Has had 10-15 detox and or rehab admissions in the past. NKA. Denies history of seizure. Denies current home medications. Will admitted to room 319. RN to complete admission in unit.
[2017-07-28] MEDS ORDERED: LORAZEPAM 2 MG/1 ML VIAL IM PRN (11:15)
[2017-07-28] MEDS ORDERED: CLONIDINE HCL 0.1 MG TABLET PO PRN (11:15)
[2017-07-28] MEDS ORDERED: diphenhydrAMINE 50 MG CAPSULE PO PRN (11:15)
[2017-07-28] MEDS ORDERED: IBUPROFEN 600 MG TABLET PO PRN (11:15)
[2017-07-28] MEDS ORDERED: THIAMINE HCL 200 MG/2 ML VIAL IM ONE (11:15)
[2017-07-28] MEDS ORDERED: LORAZEPAM 1 MG TABLET PO PRN ×2 (11:15)
[2017-07-28] MEDS ORDERED: MAG HYDROX/AL HYDROX/SIMETH 30 ML LIQUID UDC PO PRN (11:15)
[2017-07-28] MEDS ORDERED: ACETAMINOPHEN 325 MG TABLET PO PRN (11:15)
[2017-07-28] MEDS ORDERED: LOPERAMIDE HCL 2 MG CAPSULE PO PRN ×2 (11:15)
[2017-07-28] MEDS ORDERED: DICYCLOMINE HCL 20 MG TABLET PO PRN (11:15)
[2017-07-28] MEDS ORDERED: ONDANSETRON 4 MG/2 ML VIAL IM PRN (11:15)
[2017-07-28] MEDS ORDERED: ONDANSETRON ODT 4 MG TAB.RAPDIS SL PRN (11:15)
[2017-07-28 11:49] LABS: *URINE HCG, QUAL NEGATIVE (NEGATIVE)
[2017-07-28 12:05] LABS: *AMPHETAMINE, URINE POSITIVE (NEGATIVE); *BARBITURATE, URINE NEGATIVE (NEGATIVE); *CANNABINOID, URINE NEGATIVE (NEGATIVE); *COCCAINE, URINE NEGATIVE (NEGATIVE); *OPIATE, URINE NEGATIVE (NEGATIVE); *PHENCYCLIDINE SCREEN,URINE NEGATIVE (NEGATIVE)
[2017-07-28] MEDS: LORAZEPAM 1 MG TABLET PO SCH ×4 (12:10→20:25)
--- NOTE | 2017-07-28 12:10 | NUR ---
PRN MEDICATION ADMINISTRATION Pt reports constant nausea, severe. Given Zofran IM PRN. Will reassess.
[2017-07-28 12:30] VITALS: BP 111/69
--- NOTE | 2017-07-28 12:40 | NUR ---
PRN MEDICATION REASSESSMENT Pt reports decrease in nausea after PRN Zofran IM. Pt has able to drink half bottle of 7 up soda with no emesis.
[2017-07-28] MEDS ORDERED: BUPRENORPHINE HCL 2 MG TAB.SUBL SL PRN (13:00)
[2017-07-28 13:15] VITALS: BP 105/68
[2017-07-28 13:20] LABS: BASOPHILS # (AUTO) 0.1 K/uL (0.0-8.0); BASOPHILS % (AUTO) 1.2 % (0.0-2.0); EOSINOPHILS % (AUTO) 0.4 % (0.0-7.0); HEMATOCRIT 44.4 % (37-47); HEMOGLOBIN 14.9 G/DL (12.0-16.0); LYMPHOCYTES # (AUTO) 1.5 K/UL (0.8-4.8); LYMPHOCYTES % (AUTO) 21.1 % (20.5-51.5); MEAN CORPUSCULAR HEMOGLOBIN 31.7 UUG (27.0-31.0); MEAN CORPUSCULAR HGB CONC 34 g/dL (32.0-37.0); MEAN CORPUSCULAR VOLUME 94.6 FL (81.0-99.0); MONOCYTES # (AUTO) 0.5 K/UL (0.1-1.30); MONOCYTES % (AUTO) 7.1 % (0.0-11.0); NEUTROPHILS # (AUTO) 4.8 K/UL (1.8-8.9); NEUTROPHILS % (AUTO) 70.2 % (38.5-71.5); PLATELET COUNT (AUTO) 286 K/UL (150-450); RED BLOOD CELL COUNT(AUTO) 4.69 MIL/UL (4.2-5.4); WHITE BLOOD COUNT (AUTO) 6.9 K/UL (4.0-11.2)
[2017-07-28] MEDS ORDERED: DILTIAZEM HCL 30 MG TABLET PO ONE (13:30)
[2017-07-28 13:32] LABS: BILIRUBIN,TOTAL 0.4 mg/dL (0.2-1.0); CREATININE 0.7 mg/dL (0.6-1.3); MAGNESIUM 1.8 mg/dL (1.8-2.4); POTASSIUM 2.9 mmol/L (3.5-5.1); TOTAL PROTEIN, SERUM 7.4 g/dL (6.4-8.2)
[2017-07-28] MEDS: ASPIRIN 325 MG TABLET PO SCH (13:59)
[2017-07-28] MEDS ORDERED: LORAZEPAM 1 MG TABLET PO ONE (14:00)
[2017-07-28] MEDS ORDERED: MAGNESIUM OXIDE 400 MG TABLET PO ONE (14:00)
--- NOTE | 2017-07-28 14:03 | NUR ---
LUÍS Bailey from lab called to report ethyl % 0.08. Made nurse aware.
[2017-07-28] MEDS: POTASSIUM CHLORIDE 20 MEQ TAB.PRT.SR PO SCH ×2 (14:11→20:25)
[2017-07-28 14:25] VITALS: BP 107/67
[2017-07-28 15:35] VITALS: BP 110/70
[2017-07-28 16:00] VITALS: BP 111/77
[2017-07-28] MEDS: PAROXETINE HCL 20 MG TABLET PO SCH (16:34)
[2017-07-28] MEDS ORDERED: DILTIAZEM HCL 30 MG TABLET PO SCH (18:00)
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
--- NOTE | 2017-07-28 19:10 | NUR ---
Start of Shift Patient Received. Patient is in her bed, sleeping, but easily aroused to verbal stimuli. Breathing even and non labored. Patient is a 41 year old female that was admitted on 07/28/17 for ETOH and Opiate Dependence under the care Dr. Wilcox. Patient was started on 5 day Ativan taper with PRN Subutex available for COWS score greater than 12. Patient verbalizes no known allergies, wishes to be full code, following a regular diet, placed on fall and seizure precautions. Patients past medical history noted as Depression, Herpes Zoster to Right flank, left ovarian cyst, Right Oophorectomy, right wrist Surgery, with no history of seizures. Per endorsement, patient was started on modified Ativan taper and is tolerating well. Patient also received PRN Subutex and Zofran IM with medication noted to be effective. Last noted COWS 10 and CIWA 13. All needs attended to promptly. Will continue plan of care as ordered. Addendum: 07/29/17 at 0612 by REGINALDO KOCH LVN Correction: Last noted COWS 3 and CIWA 3
--- NOTE | 2017-07-28 19:19 | NUR ---
END OF SHIFT NOTE 41 year old female admitting for ETOH, meth dependence. Also admits to heroin use. History of depression, herpes zoster, left ovarian cyst, right ovary removed due to cysts, hernia repair, right wrist surgery. KNA. Fall and seizure precautions. Full code . Regular diet. Last CIWA 3 at COWS 3 at 1636. Pt received one Subutex PRN for COWS 13, received Ativan one time doses per Dr. Wilcox x 3 and now on Ativan 5 day taper. Pulse 120s on admission. EKG, troponin, echocardiogram, cardiac consult done. Perinatal Tech stating to patient that tachycardia most likely due to dehydration and encouraged fluids. HR 98 at 1630. Report given to night RN. Bed in low position and locked, call light in reach, side rails up x 2 and padded.
[2017-07-28 20:21] VITALS: BP 112/68
[2017-07-28] MEDS: QUETIAPINE FUMARATE 100 MG TABLET PO SCH (20:25)
[2017-07-28] MEDS: GABAPENTIN 300 MG CAPSULE PO SCH (20:25)
[2017-07-29 00:31] VITALS: BP 112/68
[2017-07-29 04:24] VITALS: BP 116/70
--- NOTE | 2017-07-29 07:03 | NUR ---
End of Shift Patient is in bed sleeping. Breathing even and non labored. Patient is a 41 year old female that was admitted on 07/28/17 for ETOH and Opiate Dependence under the care Dr. Wilcox. Patient was started on 5 day Ativan taper with PRN Subutex available for COWS score greater than 12. No Known Allergies, Full Code, Regular Diet, placed on fall and seizure precautions. Patients past medical history noted as Depression, Herpes Zoster to Right flank, left ovarian cyst, Right Oophorectomy, right wrist Surgery, with no history of seizures. No PRN medications administered. Last notes COWS 10 and CIWA 13. All needs attended to promptly. Will endorse to continue plan of care as ordered.
[2017-07-29 07:06] LABS: HEPATITIS B SURFACE AG Negative (Negative)
--- NOTE | 2017-07-29 07:36 | NUR ---
START OF SHIFT Received report from night club manager nurse. 41 year old female patient admitted on 07/28/17 for ETOH, Heroin, and Methamphetamine withdrawals. Pt s/s of discomfort and withdrawals are being managed by ordered taper medications and scheduled medication. Pt is tolerating well. Pt reports hx of depression, herpes zoster (reports as active), skin reported to be intact, bilateral shins noted to have bruises upon admission. No PRN medications needed or administered at night. Most recent COWS is 10, CIWA is 13, pt slept for 8 hours. Pt was consulted by hospital coordinator, ekg reported as wnl, echo results are still pending. Pt denies chest pain or discomfort although noted with tachycardia at night. Pt heart rate at this time is 90, and regular rhythm. Safety measures are in place, will continue to monitor.
[2017-07-29 07:42] LABS: CREATININE 0.7 mg/dL (0.6-1.3)
[2017-07-29 08:05] VITALS: BP 110/73
[2017-07-29] MEDS ORDERED: TUBERCULIN,PURIF.PROT.DERIV. 5 TU/0.1 ML TEST ID ONE (09:00)
--- NOTE | 2017-07-29 09:16 | NUR ---
REFUSING TB TEST Pt is refusing PPD test and states "I got it 6 months ago, I was not exposed to it and don't want the test at this time." Education provided.
[2017-07-29] MEDS: ASPIRIN 325 MG TABLET PO SCH (09:23)
[2017-07-29] MEDS: BUPRENORPHINE HCL 2 MG TAB.SUBL SL PRN (09:24)
[2017-07-29] MEDS: GABAPENTIN 300 MG CAPSULE PO SCH ×3 (09:24→21:23)
[2017-07-29] MEDS: LORAZEPAM 1 MG TABLET PO SCH ×3 (09:24→21:23)
[2017-07-29] MEDS: THIAMINE HCL 100 MG TABLET PO SCH (09:24)
[2017-07-29] MEDS: MULTIVITAMINS,THERAPEUTIC TABLET PO SCH (09:24)
[2017-07-29] MEDS: FOLIC ACID 1 MG TABLET PO SCH (09:24)
[2017-07-29] MEDS: PAROXETINE HCL 20 MG TABLET PO SCH (09:24)
--- NOTE | 2017-07-29 09:27 | NUR ---
PRN SUBUTEX Pt COWS is 8, pt HR is 90, reports chills, difficulty sitting still, mild body aches reports, nasal stuffiness, mild tremors and anxiety noted. Per MD orders, PRN Subutex 2mg administered. Will reassess.
--- NOTE | 2017-07-29 09:54 | NUR ---
REASSESSMENT Subutex 2mg effective, COWS went from 8 to 5, will continue to monitor closely.
--- NOTE | 2017-07-29 10:16 | NUR ---
Therapist prompted client about group times. Client stated she is not going to attend groups today because she wants to rest.
[2017-07-29 12:27] VITALS: BP 117/73
[2017-07-29 17:09] VITALS: BP 99/60
--- NOTE | 2017-07-29 18:54 | NUR ---
END OF SHIFT Patient continues on Ativan taper and is tolerating well. PRN Subutex 2mg administered this morning and effective, most recent COWS is 4, and CIWA 7 at 1700. pt does not meet criteria for Subutex at this time. Pt discomfort is being managed with ordered educations. Pt has adequate caloric intake and fluid intake. Pt verbalizes feelings to nurse. All needs met at this time, night nurse to continue monitoring.
[2017-07-29 20:00] VITALS: BP 119/95
--- NOTE | 2017-07-29 20:00 | NUR ---
Start of Shift Pt is a 41 year old female admitted for ETOH/Opiate dependence, placed on 5 day Ativan taper, Subutex PRN available for s/s of opiate withdrawal. Pt reported using Vodka 1.5 liters/daily, Heroin small amount/dilay and methamphetamine (smoke) 2-5g/dailiy. PMH: depression, herpes zoster, left ovarian cyst (removed), hernia repair, right wrist surgery. NKA, regular diet, fall/seizure precautions (no hx of seizures) and full code. Upon assessment, pt reports feeling anxious, reports joint aches, chills, skin is flushed/clammy, tremors felt, respirations even/unlabored, denies SOB/chest pain, denies n/v/d . Medications due. Safety measures in place, call light within reach, side rails up x2, bed locked and in low position. Will continue to monitor.
[2017-07-29] MEDS: QUETIAPINE FUMARATE 100 MG TABLET PO SCH (21:23)
[2017-07-30] VITALS: BP 94/62
--- NOTE | 2017-07-30 | NUR ---
COWS/CIWA deferred due to pt sleeping, to assess while pt is awake as ordered. BP 94/62, pulse 93, resp 16, SpO2 97.9, temp 97.9, no pain Pt is sleeping, safety measures in place, will continue to monitor. Addendum: 07/30/17 at 0611 by ADRIAN MATA RN BP 94/62, pulse 93, resp 16, SpO2 96%, temp 97.9, no pain
[2017-07-30 04:00] VITALS: BP 98/69
--- NOTE | 2017-07-30 04:00 | NUR ---
COWS/CIWA deferred due to pt sleeping, to assess while pt is awake as ordered. BP 98/69, pulse 83, resp 16, SpO2 100% temp 97.9, no pain Pt is sleeping, safety measures in place, will continue to monitor.
--- NOTE | 2017-07-30 07:00 | NUR ---
End of Shift Pt is a 41 year old female admitted for ETOH/Opiate dependence, placed on 5 day Ativan taper, Subutex PRN available for s/s of opiate withdrawal. Pt reported using Vodka 1.5 liters/daily, Heroin small amount/daily and methamphetamine (smoke) 2-5g/daily. PMH: depression, herpes zoster, left ovarian cyst (removed), hernia repair, right wrist surgery. NKA, regular diet, fall/seizure precautions (no hx of seizures) and full code. During shift, pt reported feeling anxious, reported joint aches, chills, skin flushed/clammy, tremors felt scheduled taper medications administered, CIWA 9 and CIWA 4. No PRN medications administered during shift. Pt slept for 7 hours, intake of 796 ml PO, voids x2 and stool x1. Safety measures in place, call light within reach, side rails up x2, bed locked and in low position. Endorsed to day shift nurse.
--- NOTE | 2017-07-30 07:01 | NUR ---
Start of Shift Notes: Received report from night nurse. Patient is in her room. Alert and verbally responsive. Oriented x 4. Able to make her needs known. Respirations even and unlabored. No SOB noted. Skin warm and dry to touch. Abdomen soft and non-distended. BS (+) in all 4 quadrants. No complains of N/V/D or constipation noted. Bladder non-distended. No complains of dysuria noted. Ambulatory ad anthony with steady gait. Patient is a 41 year old female admitted for ETOH/meth and heroin dependence who was placed on a 5-day Ativan and PRN Subutex taper as ordered. No adverse reactions noted. Has past medical hx of depression, herpes zoster, left ovarian cyst, hernia repair, right wrist surgery and no seizure history. NKA. FULL CODE. Regular diet. On fall and seizure precautions. Educated patient on the current plan of care for the day and the medication regimen. Patient verbalized good understanding. Encouraged oral fluid intake and encouraged group participation to learn new skills to prevent relapse. Will continue to monitor closely.
[2017-07-30 08:00] VITALS: BP 105/77
[2017-07-30] MEDS: PAROXETINE HCL 20 MG TABLET PO SCH (08:32)
[2017-07-30] MEDS: GABAPENTIN 300 MG CAPSULE PO SCH ×3 (08:32→21:18)
[2017-07-30] MEDS: FOLIC ACID 1 MG TABLET PO SCH (08:32)
[2017-07-30] MEDS: MULTIVITAMINS,THERAPEUTIC TABLET PO SCH (08:32)
[2017-07-30] MEDS: THIAMINE HCL 100 MG TABLET PO SCH (08:32)
[2017-07-30] MEDS: LORAZEPAM 1 MG TABLET PO SCH ×3 (08:32→16:27)
[2017-07-30 12:00] VITALS: BP 122/81
[2017-07-30] MEDS: BUPRENORPHINE HCL 2 MG TAB.SUBL SL PRN (12:34)
--- NOTE | 2017-07-30 12:34 | NUR ---
Subutex 2 mg SL/Bentyl 20 mg/Motrin 600 mg PO/Clonidine 0.1mg PO given: Patient's COWS 11/CIWA 5, complains of muscle aches /10, abdominal cramping, chills, sweats and hot flashes with increase in anxiety. Medicated patient with routine Ativan as scheduled. PRN Subutex 2 mg SL per COWS score, Bentyl 20 mg PO for abdominal cramps, Motrin 600 mg PO for muscle aches and Clonidine 0.1mg PO for sweats and hot flashes and chills. Will monitor for effectiveness.
--- NOTE | 2017-07-30 13:04 | NUR ---
Re-assessment: Subutex COWS 7, PRN Subutex was effective in reducing her s/s of withdrawal
--- NOTE | 2017-07-30 13:34 | NUR ---
Re-assessment: Per patient, PRN Bentyl, Clonidine, and Motrin were effective in reducing patient's abdominal cramps, chills, hot flashes, anxiety and muscle aches. PL 3/10.
--- NOTE | 2017-07-30 14:26 | NUR ---
Client was prompted to attend daily group therapy sessions. Client related that she would consider attending.
[2017-07-30] MEDS: busPIRone 5 MG TABLET PO SCH ×2 (15:31→16:27)
[2017-07-30 16:00] VITALS: BP 107/60
--- NOTE | 2017-07-30 16:27 | NUR ---
Buspar at 1700 not administered: Buspar at 1700 not administered. Patient just received first dose of Buspar less than 1 hour ago. Notified MD, per MD, OK to hold at this time.
[2017-07-30] MEDS: BUPRENORPHINE HCL 2 MG TAB.SUBL SL SCH ×2 (16:47→21:19)
--- NOTE | 2017-07-30 16:51 | NUR ---
Modified 4-day Subutex taper: Initiated 4-day Subutex taper at this time in conjunction with patient's previous 5-day Ativan taper. Patient education provided. Patient verbalized good understanding. Will continue to monitor closely. As of today, patient is on modified 4-day Ativan and 4-day Subutex taper.
--- NOTE | 2017-07-30 18:54 | NUR ---
End of Shift Notes: Patient is now on a modified 4-day Ativan and 4-day Subutex taper. No adverse reactions noted. VS monitored closely. No significant abnormalities noted. Withdrawal symptoms were closely monitored. Initial COWS 4/CIWA 5, patient presented with myalgia, anxiety, sweating and tremors abdominal cramps, chills and hot flashes. Last COWS 6/CIWA 5. Medicated patient with Subutex 2 mg SL, Bentyl 20 mg PO, Motrin 600 mg PO and Clonidine 0.1mg PO at 1234 with help after 1 hour. Per patient, Ativan and Subutex has been effective in reducing her withdrawal symptoms. Encouraged patient to participate in group and activities. Compliant with care and treatment. Continues to be on fall and seizure precautions. All needs met and attended. Will continue to monitor closely.
[2017-07-30 20:00] VITALS: BP 107/70
--- NOTE | 2017-07-30 20:00 | NUR ---
Start of Shift Pt is a 41 year old female admitted for ETOH/Opiate dependence, placed on 5 day Ativan taper and 4 day Subutex taper. Pt reported using Vodka 1.5 liters/daily, Heroin small amount/dilay and methamphetamine (smoke) 2-5g/dailiy. PMH: depression, herpes zoster, left ovarian cyst (removed), hernia repair, right wrist surgery. NKA, regular diet, fall/seizure precautions (no hx of seizures) and full code. Upon assessment, pt reports feeling anxious and thinking about everything at ones, reports muscle aches and feeling fatigue, skin is flushed/clammy, respirations even/unlabored, denies SOB/chest pain, denies n/v/d . Medications due. Safety measures in place, call light within reach, side rails up x2, bed locked and in low position. Will continue to monitor.
[2017-07-30] MEDS ORDERED: LORAZEPAM 1 MG TABLET PO SCH (21:00)
[2017-07-30] MEDS: QUETIAPINE FUMARATE 100 MG TABLET PO SCH (21:18)
[2017-07-31] VITALS: BP 105/74
--- NOTE | 2017-07-31 | NUR ---
COWS/CIWA deferred due to pt sleeping, to assess while pt is awake as ordered. BP 105/74, pulse 88, resp 16, SpO2 98% temp 97.9, no pain Pt is sleeping, safety measures in place, will continue to monitor.
[2017-07-31 04:00] VITALS: BP 95/60
--- NOTE | 2017-07-31 04:00 | NUR ---
COWS/CIWA deferred due to pt sleeping, to assess while pt is awake as ordered. BP 95/60, pulse 83, resp 15, SpO2 96% temp 97.9, no pain Pt is sleeping, safety measures in place, will continue to monitor.
--- NOTE | 2017-07-31 07:00 | NUR ---
End of Shift Pt is a 41 year old female admitted for ETOH/Opiate dependence, placed on 5 day Ativan taper and 4 day Subutex taper. Pt reported using Vodka 1.5 liters/daily, Heroin small amount/daily and methamphetamine (smoke) 2-5g/daily. PMH: depression, herpes zoster, left ovarian cyst (removed), hernia repair, right wrist surgery. NKA, regular diet, fall/seizure precautions (no hx of seizures) and full code. During shift, pt reported feeling anxious and thinking about everything at ones, reports muscle aches and feeling fatigue, skin is flushed/clammy scheduled taper medications administered, CIWA 6 and COWS 7. No PRN medications administered during shift. Pt slept for 7 hours, intake of 1574 ml PO, voids x4 and stool x0. Safety measures in place, call light within reach, side rails up x2, bed locked and in low position. Endorsed to day shift nurse.
[2017-07-31 08:28] VITALS: BP 93/61
[2017-07-31] MEDS: MULTIVITAMINS,THERAPEUTIC TABLET PO SCH (10:11)
[2017-07-31] MEDS: FOLIC ACID 1 MG TABLET PO SCH (10:11)
[2017-07-31] MEDS: LORAZEPAM 1 MG TABLET PO SCH ×3 (10:11→21:18)
[2017-07-31] MEDS: busPIRone 5 MG TABLET PO SCH ×3 (10:12→18:23)
[2017-07-31] MEDS: THIAMINE HCL 100 MG TABLET PO SCH (10:12)
[2017-07-31] MEDS: PAROXETINE HCL 20 MG TABLET PO SCH (10:12)
[2017-07-31] MEDS: GABAPENTIN 300 MG CAPSULE PO SCH ×3 (10:12→21:17)
[2017-07-31] MEDS: BUPRENORPHINE HCL 2 MG TAB.SUBL SL SCH ×3 (10:13→21:17)
[2017-07-31] MEDS ORDERED: BUPRENORPHINE HCL 2 MG TAB.SUBL SL ONE (13:00)
[2017-07-31 13:12] VITALS: BP 114/58
[2017-07-31] MEDS: KETOROLAC TROMETHAMINE 30 MG INJ IM PRN ×2 (13:45→23:41)
--- NOTE | 2017-07-31 13:47 | NUR ---
Patient refuses toradol and says it's because she does not want to put too many medications in her body. Her pain is 8 / 10. It is in her left hip and radiates down her leg to her calf. She says not to wake her if she is taking a nap. She says subutex might work for her pain and that will be all she needs.
--- NOTE | 2017-07-31 14:14 | NUR ---
Client was prompted to attend daily group therapy sessions. Client stated that she would attend if she was feeling well enough to do so.
[2017-07-31] MEDS: BACLOFEN 10 MG TABLET PO SCH ×2 (15:30→21:17)
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
[2017-07-31 17:45] VITALS: BP 109/53
[2017-07-31] MEDS ORDERED: hydrALAZINE HCL 50 MG TABLET PO PRN (17:45)
--- NOTE | 2017-07-31 19:14 | NUR ---
Handoff report to night nurse.
[2017-07-31 20:00] VITALS: BP 114/82
--- NOTE | 2017-07-31 20:00 | NUR ---
Start of Shift Received a 41 year old female admitted on 07/28/2017 for ETOH/Opiate dependence. Px has NKA, on regular diet, and on full code. Placed on 5 day Ativan taper and 4 day Subutex taper. During the rounds at 1999, px complained of generalized body aches 04/29. Denies SOB/chest pain, denies n/v/d . Encouraged fluids intake as tolerated. Safety measures in place, call light within reach, side rails up x2, bed locked and in low position. We'll continue to monitor.
[2017-07-31] MEDS: PROPRANOLOL HCL 20 MG TABLET PO SCH (21:17)
[2017-07-31] MEDS: QUETIAPINE FUMARATE 100 MG TABLET PO SCH (21:17)
[2017-07-31] MEDS: MIRALAX 17 GM POWD.PACK PO PRN (21:25)
--- NOTE | 2017-07-31 21:25 | NUR ---
PRN Miralax Px complained of her constipation for already 1 week as verbalized. Miralax 17 G mixed with 200 ml of water given PO as PRN med. We'll continue to monitor.
--- NOTE | 2017-07-31 23:45 | NUR ---
PRN Toradol Px still complained of body aches 04/29. Toradol 30 mg given IM on left buttocks. Px tolerated. We'll continue to monitor.
[2017-08-01] VITALS: BP 92/60
[2017-08-01 04:00] VITALS: BP 92/60
--- NOTE | 2017-08-01 04:00 | NUR ---
COWS and CIWA deferred COWS and CIWA deferred due to the px is sleeping, to assess if the px is awake per doctor's order. We'll continue to monitor.
--- NOTE | 2017-08-01 07:17 | NUR ---
End of Shift Notes 41 year old female admitted on 07/28/2017 for ETOH/Opiate dependence. Px has NKA, on regular diet, and on full code. During the shift, Px complained of her constipation for already 1 week as verbalized. Miralax 17 G mixed with 200 ml of water given PO as PRN med. Px complained of body aches 04/29. Toradol 30 mg given IM on left buttocks. Respirations are even/unlabored. Oral intake of 1,300 ml, voided 3x, No BM. Slept for 7 hrs. Safety measures in place, call light within reach, side rails up x2, bed locked and in low position. We'll continue to monitor.
--- NOTE | 2017-08-01 07:45 | NUR ---
START OF SHIFT Rcvd endorsement from ongoing nurse, client is in room, she is a/o x 4, she presents with depressed mood, flat affect, flushed face, and moist skin, bowel sounds active in all quadrants, abdomen soft, non-distended. She reports decreased appetite, restless legs, sweating, and fatigue. She denies any N/V/D. She denies any SI/HI. Encourage client to attend to group therapy for skills to maintain sober. Encourage client to increase PO fluid intake as tolerated to facilitate detox and assist with constipation. Client is a 41 y/o female, admitted to [facility] for withdrawal from alcohol and heroin. She is on 5 day Ativan taper, 4 day Subutex taper, tolerating well (day 4). Last CIWA 4 @ 1999. PRN Miralax 17G PO for constipation has not had a BM yet, Toradol 30mg Ing IM for generalized pain 04/29, effective. Client slept 7 hrs. She denies a hx of withdrawal-induced seizures, Client reports NKA , she is full code, regular diet. Side rails x 2 up/padded for seizure precautions. Call light within reach.
[2017-08-01 08:00] VITALS: BP 91/56
[2017-08-01] MEDS: PROPRANOLOL HCL 20 MG TABLET PO SCH ×2 (09:00→20:28)
[2017-08-01] MEDS ORDERED: BUPRENORPHINE HCL 2 MG TAB.SUBL SL SCH (09:00)
[2017-08-01] MEDS: BUPRENORPHINE HCL 2 MG TAB.SUBL SL SCH ×3 (09:51→20:29)
[2017-08-01] MEDS: GABAPENTIN 300 MG CAPSULE PO SCH ×2 (09:51→15:09)
[2017-08-01] MEDS: PAROXETINE HCL 20 MG TABLET PO SCH (09:51)
[2017-08-01] MEDS: MULTIVITAMINS,THERAPEUTIC TABLET PO SCH (09:51)
[2017-08-01] MEDS: busPIRone 5 MG TABLET PO SCH ×3 (09:51→16:47)
[2017-08-01] MEDS: BACLOFEN 10 MG TABLET PO SCH (09:52)
[2017-08-01] MEDS: LORAZEPAM 1 MG TABLET PO SCH ×2 (09:52→20:28)
[2017-08-01] MEDS: THIAMINE HCL 100 MG TABLET PO SCH (09:52)
[2017-08-01] MEDS: FOLIC ACID 1 MG TABLET PO SCH (09:52)
[2017-08-01] MEDS: CARBAMIDE PEROXIDE OTIC DROP 15 ML BOTTLE EACH EAR SCH ×2 (11:11→20:28)
[2017-08-01 12:45] VITALS: BP 91/52
[2017-08-01] MEDS: BACLOFEN 20 MG TABLET PO SCH ×2 (15:08→20:28)
[2017-08-01] MEDS: METHOCARBAMOL 750 MG TABLET PO PRN ×2 (15:33→23:40)
--- NOTE | 2017-08-01 15:33 | NUR ---
PRN Robaxin 750mg PO administered for generalized muscle spasms. Will continue to monitor.
--- NOTE | 2017-08-01 16:33 | NUR ---
Reassessment PRN Robaxin 750mg PO effective, client verbalizes relief from generalized muscle spasms.
[2017-08-01 16:55] VITALS: BP 115/80
--- NOTE | 2017-08-01 19:15 | NUR ---
END OF SHIFT Client is a 41 y/o female, admitted to [facility] for withdrawal from alcohol and heroin. She is on 5 day Ativan taper, 4 day Subutex taper, tolerating well (day 4). Last CIWA 6 / COWS 7 @ 1600. PRN Robaxin 750mg PO administered for generalized muscle spasms. Client is compliant with 1/3 of group therapy. Consumes 50-75% of meals, adequate PO fluid intake 1600mL, void x 3. She denies a hx of withdrawal-induced seizures, Client reports NKA , she is full code, regular diet. Side rails x 2 up/padded for seizure precautions. Call light within reach.
[2017-08-01 20:00] VITALS: BP 103/74
--- NOTE | 2017-08-01 20:00 | NUR ---
START OF SHIFT NOTE RECEIVED REPORT FROM DAY SHIFT NURSE. PATIENT IS A 41 YEAR OLD FEMALE ADMITTED FOR ETOH DEPENDENCE. PATIENT IS ON 5 DAY ATIVAN AND 4 DAY SUBUTEX TAPER. PATIENT REPORTS PMH OF DEPRESSION, HERPES ZOSTER, LEFT OVARIAN CYST, RIGHT OVARY REMOVED, HERNIA REPAIR , RIGHT WRIST SURGERY AND NO SEIZURE HISTORY. PATIENT WAS C/O BILATERAL EAR PAIN , ON DEBROX . PRN ROBAXIN WAS GIVEN. LAST COWS 7 AND CIWA 6. RECEIVED PATIENT IN HER ROOM, ALERT AND ORIENTED X 4. RESPIRATION EVEN AND UNLABORED. PATIENT REPORTS ANXIETY, SWEATING, RESTLESS LEGS, STUFFY NOSE, NOTE WITH TREMORS, C/O LOWER BACK PAIN AND BILATERAL EAR. PATIENT ON FALL/SEIZURE PRECAUTION. SAFETY MEASURES IN PLACE. CALL LIGHT IN REACH. WILL CONTINUE TO MONITOR.
[2017-08-01] MEDS: QUETIAPINE FUMARATE 100 MG TABLET PO SCH (20:29)
[2017-08-01] MEDS ORDERED: GABAPENTIN 300 MG CAPSULE PO SCH (21:00)
[2017-08-01] MEDS: MIRALAX 17 GM POWD.PACK PO PRN (23:40)
--- NOTE | 2017-08-01 23:40 | NUR ---
PRN MIRALAX AND ROBAXIN ADMINISTRATION PATIENT C/O GENERALIZED BODY ACHES 02/27, PRN ROBAXIN GIVEN AND REQUESTS FOR LAXATIVE, PRN MIRALAX GIVEN. WILL MONITOR FOR EFFECTIVENESS
[2017-08-02] VITALS: BP 100/64
--- NOTE | 2017-08-02 00:40 | NUR ---
CARLOS ALBERTO PAULA RE-ASSESSMENT PATIENT IN BED ASLEEP AT THIS TIME. NO FACIAL GRIMACING. RESPIRATION EVEN AND UNLABORED. SAFETY MEASURES IN PLACE. CALL LIGHT IN REACH. WILL CONTINUE TO MONITOR
[2017-08-02 04:00] VITALS: BP 93/53
--- NOTE | 2017-08-02 04:00 | NUR ---
COWS/CIWA DEFERRED PATIENT SLEEPING. COWS AND CIWA DEFERRED . RESPIRATION EVEN AND UNLABORED. SAFETY MEASURES IN PLACE. CALL LIGHT IN REACH. WILL CONTINUE TO MONITOR
--- NOTE | 2017-08-02 07:15 | NUR ---
Start of Shift Endorsement received from nightshift nurse. Pt is a 41 y/o female alcohol, meth and heroin dependence. PT has been placed on a 4 day Subutex taper. Pt is mildly withdrawing at this time AEB COWS 3, CIWA 3. Pt reports sleeping 5 hours. Pt received PRN Miralax and Robaxin. VS WNL. Full Code. PT is alert and oriented x4. Pt is in STABLE condition at this time. Remains compliant with medication and diet regimen. All needs have been met, All safety measures in place per hospital policy. Bed in lowest position, side rails up x2, call-light within reach. Will continue to monitor
--- NOTE | 2017-08-02 07:16 | NUR ---
END OF SHIFT NOTE PATIENT IS A 41 YEAR OLD FEMALE ADMITTED FOR ETOH DEPENDENCE. PATIENT IS ON 5 DAY ATIVAN AND 4 DAY SUBUTEX TAPER, TOLERATED WELL, NO ADVERSE REACTION. PATIENT WAS GIVEN MEDICATION ORDERED, COMPLIANT. PRN MIRALAX AND ROBAXIN WAS GIVEN. PATIENT COMPLIANT WITH TREATMENT PLAN. PATIENT ON FALL/SEIZURE PRECAUTION. SAFETY MEASURES IN PLACE. CALL LIGHT IN REACH. WILL CONTINUE TO MONITOR. SLEPT 5 HOURS. FLUID INTAKE 2,500 ML. VOIDED X 3 .NO BM. LAST COWS 3 AND CIWA 3. ENDORSED TO NEXT SHIFT NURSE TO FOLLOW UP ON MIRALAX.
[2017-08-02 08:00] VITALS: BP 105/61
[2017-08-02] MEDS ORDERED: BUPRENORPHINE HCL 2 MG TAB.SUBL SL SCH (09:00)
[2017-08-02] MEDS ORDERED: LORAZEPAM 1 MG TABLET PO SCH ×2 (09:00→12:00)
[2017-08-02] MEDS: BACLOFEN 20 MG TABLET PO SCH ×3 (09:05→20:27)
[2017-08-02] MEDS: busPIRone 5 MG TABLET PO SCH ×2 (09:05→17:00)
[2017-08-02] MEDS: THIAMINE HCL 100 MG TABLET PO SCH (09:06)
[2017-08-02] MEDS: GABAPENTIN 300 MG CAPSULE PO SCH ×3 (09:06→20:27)
[2017-08-02] MEDS: MULTIVITAMINS,THERAPEUTIC TABLET PO SCH (09:06)
[2017-08-02] MEDS: FOLIC ACID 1 MG TABLET PO SCH (09:06)
[2017-08-02] MEDS: CARBAMIDE PEROXIDE OTIC DROP 15 ML BOTTLE EACH EAR SCH ×2 (09:07→20:26)
[2017-08-02] MEDS: PAROXETINE HCL 20 MG TABLET PO SCH (09:07)
[2017-08-02] MEDS: PROPRANOLOL HCL 20 MG TABLET PO SCH ×2 (09:09→20:28)
[2017-08-02 12:00] VITALS: BP 89/52
[2017-08-02] MEDS: LORAZEPAM 1 MG TABLET PO SCH ×2 (14:05→20:27)
[2017-08-02 16:00] VITALS: BP 88/55
--- NOTE | 2017-08-02 18:59 | NUR ---
START OF SHIFT NOTE: Patient is a 41 year old female admitted to [facility] on 07/28/2017 for ETOH/Alcohol, Opioid, and Methamphetamine dependence. Patient is continuing 5 Day Ativan Taper and completed 4 Day Subutex Taper which tolerated well without ASE. Patient remains compliant with treatment, medications, and diet regime. Patient reports NKA, Regular Diet. Patient is on Full Code, Fall and Seizures Precautions. Patient denies History of Seizure. PMH: Anxiety, Depression, Herpes Zoster active Right flank, Left ovarian cyst, Substance Abuse disorder. Past Surgical History: Hernia Repair, Right wrist Surgery, and Right ovary Removed. Patient reports Substance Use: 1."ETOH/Alcohol PO: "Vodka 1,500 ml every day for 2 months. Last intake 1,500 ml on 07/27/2017 @PM". 2."Heroin smokes every day unknown amount for 2 months. Last smoked with pipe small amount on 07/28/17 at AM". 3."Methamphetamine smoke 2-5 grams every day for 2 months. Last smoked unknown dose 2 weeks ago". Patient reports Treatment History in [facility]"10-15 times". Last was at "[facility]" on 05/2017 ". Upon endorsement, patient is in her room alert and oriented with stable gait. VS:T: 98.7, HR:79, BP: 98/65, RA O2SAT:98%, RR:19, pain level:"0/10". COWS 4, CIWA 5. The patient presented with anxiety, agitation, nervousness, nasal stuffy/moist eyes, diaphoresis, restless legs, and fatigue. Patient denies SI/HI. Respirations are unlabored and even. Patient denies SOB and chest pain. Lungs Sounds are clear bilaterally. Bowel Sounds active in all x4 quadrants. Abdomen is soft and non-tender. PERRLA, brisk capillary refill, cathode ray tube assembler equal and strong. Skin is intact, warm and dry to touch. Encouraged to fluids intake as tolerated. Encouraged to attending groups activities. All needs met. Safety measures on place. Call light within reach, bed in lowest position, and locked, padded rails up bilaterally. Patient endorsed by day shift nurse. Report received. Will continue to monitor closely.
--- NOTE | 2017-08-02 18:59 | NUR ---
End of Shift Endorsement given to nightshift nurse. Pt is a 41 y/o female alcohol, meth and heroin dependence. PT has been placed on a 4 day Subutex taper and a 5 day Ativan taper. Pt has completed the Subutex taper. Pt is mildly withdrawing at this time AEB COWS 2, CIWA 2. Pt has spent the whole day in her room sleeping. Breathing is even and unlabored, responsive to name and touch. Pt did not participate in groups and activities. Pt's Ativan taper has been modified by Dr. Wilcox. Educated pt on S/E of medications and diet regimen. intake: 750ml, Void x1, BM x0. VS WNL with the last BP at 88/55. Full Code. PT is alert and oriented x4. Pt is in STABLE condition at this time. Remains compliant with medication and diet regimen. All needs have been met, All safety measures in place per hospital policy. Bed in lowest position, side rails up x2, call-light within reach. Will continue to monitor
[2017-08-02 20:00] VITALS: BP 98/65
[2017-08-02] MEDS: QUETIAPINE FUMARATE 100 MG TABLET PO SCH (20:27)
[2017-08-03] VITALS: BP 85/52
[2017-08-03 04:00] VITALS: BP 98/58
--- NOTE | 2017-08-03 07:02 | NUR ---
END OF SHIFT NOTE: Patient is a 41 year old female admitted to [facility] on 07/28/2017 for ETOH/Alcohol, Opioid, and Methamphetamine dependence. Patient is continuing 5 Day Ativan Taper and completed 4 Day Subutex Taper which tolerated well without ASE. Patient remains compliant with treatment, medications, and diet regime. Patient reports NKA, Regular Diet. Patient is on Full Code, Fall and Seizures Precautions. Patient denies History of Seizure. PMH: Anxiety, Depression, Herpes Zoster active Right flank, Left ovarian cyst, Substance Abuse disorder. Past Surgical History: Hernia Repair, Right wrist Surgery, and Right ovary Removed. Patient reports Substance Use: 1."ETOH/Alcohol PO: "Vodka 1,500 ml every day for 2 months. Last intake 1,500 ml on 07/27/2017 @PM". 2."Heroin smokes every day unknown amount for 2 months. Last smoked with pipe small amount on 07/28/17 at AM". 3."Methamphetamine smoke 2-5 grams every day for 2 months. Last smoked unknown dose 2 weeks ago". Patient reports Treatment History in [facility]"10-15 times". Last was at "[facility]" on 05/2017 ". Last CIWA 4 @0400. COWS/CIWA taken when patient's awake during night. Last VS @0400: T: 98.7, BP: 115/77, HR: 86, RR:16, RA O2Sat: 99%, pain level: "0/10". Patient denies SI/HI. Respirations unlabored and even. Skin is intact, warm and dry to touch. Patient slept 11 hours, 855 ml, voided x2. Encouraged fluids intake as tolerated. Encouraged to attend groups activities. All needs met. Safety measures on place. Call light within reach, bed in lowest position and locked, padded rails up bilaterally. Patient endorsed to day shift nurse. Report given.
--- NOTE | 2017-08-03 07:05 | NUR ---
Start of Shift Endorsement received from nightshift nurse. Pt is a 41 y/o female alcohol, meth and heroin dependence. PT has been placed on a 4 day Subutex taper. Pt is moderately withdrawing AEB COWS 5, CIWA 4. Pt reports sleeping 11 hours. Pt did not receive any PRN medications. VS WNL. Full Code. PT is alert and oriented x4. Pt is in STABLE condition at this time. Remains compliant with medication and diet regimen. All needs have been met, All safety measures in place per hospital policy. Bed in lowest position, side rails up x2, call-light within reach. Will continue to monitor
[2017-08-03 08:00] VITALS: BP 88/50
[2017-08-03] MEDS: PAROXETINE HCL 20 MG TABLET PO SCH (08:50)
[2017-08-03] MEDS: BACLOFEN 20 MG TABLET PO SCH ×3 (08:51→20:47)
[2017-08-03] MEDS: MULTIVITAMINS,THERAPEUTIC TABLET PO SCH (08:51)
[2017-08-03] MEDS: THIAMINE HCL 100 MG TABLET PO SCH (08:51)
[2017-08-03] MEDS: FOLIC ACID 1 MG TABLET PO SCH (08:51)
[2017-08-03] MEDS: busPIRone 5 MG TABLET PO SCH ×3 (08:51→17:37)
[2017-08-03] MEDS: GABAPENTIN 300 MG CAPSULE PO SCH ×3 (08:51→20:46)
[2017-08-03] MEDS: CARBAMIDE PEROXIDE OTIC DROP 15 ML BOTTLE EACH EAR SCH ×2 (08:52→20:48)
[2017-08-03] MEDS: PROPRANOLOL HCL 20 MG TABLET PO SCH ×2 (08:52→20:47)
[2017-08-03] MEDS ORDERED: LORAZEPAM 1 MG TABLET PO SCH (09:00)
[2017-08-03 12:00] VITALS: BP 112/66
[2017-08-03] MEDS ORDERED: BENZTROPINE MESYLATE 1 MG TABLET PO ONE (12:00)
[2017-08-03] MEDS ORDERED: QUET100T PO (13:09)
[2017-08-03] MEDS ORDERED: PROP20TA22 PO (13:09)
[2017-08-03] MEDS ORDERED: IBUP-1955 PO (13:09)
[2017-08-03] MEDS ORDERED: DICY20TA28 PO (13:09)
[2017-08-03] MEDS ORDERED: GABA-534 PO (13:09)
[2017-08-03] MEDS ORDERED: PARO20TA7 PO (13:09)
[2017-08-03] MEDS ORDERED: BACL20TA PO (13:09)
[2017-08-03] MEDS ORDERED: BUSP5TAB3 PO (13:09)
[2017-08-03] MEDS ORDERED: BENZ0.5T3 PO (13:09)
[2017-08-03 16:00] VITALS: BP 118/74
[2017-08-03] MEDS: BENZTROPINE MESYLATE 0.5 MG TABLET PO SCH (17:37)
--- NOTE | 2017-08-03 19:20 | NUR ---
START OF SHIFT NOTE: Patient is a 41 year old female admitted to [facility] on 07/28/2017 for ETOH/Alcohol, Opioid, and Methamphetamine dependence. Patient is continuing 5 Day Ativan Taper and completed 4 Day Subutex Taper which tolerated well without ASE. Patient remains compliant with treatment, medications, and diet regime. Patient reports NKA, Regular Diet. Patient is on Full Code, Fall and Seizures Precautions. Patient denies History of Seizure. PMH: Anxiety, Depression, Herpes Zoster active Right flank, Left ovarian cyst, Substance Abuse disorder. Past Surgical History: Hernia Repair, Right wrist Surgery, and Right ovary Removed. Upon endorsement, patient is alert and oriented with stable gait. VSWNL. COWS 5, CIWA 6. Patient denies SI/HI. Respirations are unlabored and even. Patient denies SOB and chest pain. Lungs Sounds are clear bilaterally. Bowel Sounds active in all x4 quadrants. Abdomen is soft and non-tender. PERRLA, brisk capillary refill, baggage porter equal and strong. Skin is intact, warm and dry to touch. Encouraged to fluids intake as tolerated. Encouraged to attending groups activities. All needs met. Safety measures on place. Call light within reach, bed in lowest position, and locked, padded rails up bilaterally. Patient endorsed by day shift nurse. Report received. Will continue to monitor closely.
--- NOTE | 2017-08-03 19:20 | NUR ---
End of Shift Endorsement given to nightshift nurse. Pt is a 41 y/o female alcohol, meth and heroin dependence. PT has been placed on a 4 day Subutex taper and a 5 day Ativan taper. Pt has completed the Subutex taper. Pt is mildly withdrawing at this time AEB COWS 3, CIWA 3. Pt has not participated in groups or activities. Pt is scheduled to be discharged tomorrow on 08/04/17. All discharge education and documentation has been completed. Educated pt on S/E of medications and diet regimen. intake: 3000ml, Void x4, BM x0. VS WNL. Full Code. PT is alert and oriented x4. Pt is in STABLE condition at this time. Remains compliant with medication and diet regimen. All needs have been met, All safety measures in place per hospital policy. Bed in lowest position, side rails up x2, call-light within reach. Will continue to monitor
[2017-08-03 20:00] VITALS: BP 113/76
[2017-08-03] MEDS: QUETIAPINE FUMARATE 100 MG TABLET PO SCH (20:47)
--- NOTE | 2017-08-03 21:55 | NUR ---
PRN MIRALAX 17 GM/1 POWD.PACK PO ADMINISTRATION Patient c/o constipation. PRN Miralax 17 Gm/1 Powd. Pack PO administrated as ordered. Patient tolerated well. All needs met. Safety measures on place. Call light within reach, bed in lowest position and locked, padded rails up bilaterally rails up bilaterally. Will continue to monitor closely.
--- NOTE | 2017-08-03 22:55 | NUR ---
RE-ASSESSMENT Patient reported "PRN Miralax administrated for constipation was not effective. encouraged fluids intake as tolerated. All needs met. Safety measures on place. Call light within reach, bed in lowest position and locked, padded rails up bilaterally rails up bilaterally. Will continue to monitor closely.
[2017-08-04] VITALS: BP 95/61
[2017-08-04 04:00] VITALS: BP 80/53
--- NOTE | 2017-08-04 07:12 | NUR ---
END OF SHIFT NOTE: Patient is a 41 year old female admitted to [facility] on 07/28/2017 for ETOH/Alcohol, Opioid, and Methamphetamine dependence. Patient is continuing 5 Day Ativan Taper and completed 4 Day Subutex Taper which tolerated well without ASE. Patient remains compliant with treatment, medications, and diet regime. Patient reports NKA, Regular Diet. Patient is on Full Code, Fall and Seizures Precautions. Patient denies History of Seizure. PMH: Anxiety, Depression, Herpes Zoster active Right flank, Left ovarian cyst, Substance Abuse disorder. Past Surgical History: Hernia Repair, Right wrist Surgery, and Right ovary Removed. Last CIWA 4 @0400. COWS/CIWA taken when patient's awake during night. VSWNL. Patient denies SI/HI. Respirations unlabored and even. Skin is intact, warm and dry to touch. Patient slept 11 hours, 855 ml, voided x2. PRN Miralax 17 Gm/1 Powd. Pack PO administrated for constipation was not constipation was not effective. Encouraged to fluids intake as tolerated. Patient is scheduled discharging today, 08/04/2017. All needs met. Safety measures on place. Call light within reach, bed in lowest position and locked, padded rails up bilaterally. Patient endorsed to day shift nurse. Report given.
--- NOTE | 2017-08-04 07:12 | NUR ---
Start of Shift Endorsement received from nightshift nurse. Pt is a 41 y/o female alcohol, meth and heroin dependence. PT has been placed on a 4 day Subutex taper. Pt is mildly withdrawing AEB COWS 4, CIWA 3. Pt reports sleeping 7 hours. Pt did not receive any PRN medications. Pt has been scheduled to be discharged today. All discharge education has been provided. All discharge documentation has been completed. VS WNL. Full Code. PT is alert and oriented x4. Pt is in STABLE condition at this time. Remains compliant with medication and diet regimen. All needs have been met, All safety measures in place per hospital policy. Bed in lowest position, side rails up x2, call-light within reach. Will continue to monitor
[2017-08-04 08:00] VITALS: BP 90/56
[2017-08-04] MEDS: BENZTROPINE MESYLATE 0.5 MG TABLET PO SCH (08:17)
[2017-08-04] MEDS: FOLIC ACID 1 MG TABLET PO SCH (08:17)
[2017-08-04] MEDS: MULTIVITAMINS,THERAPEUTIC TABLET PO SCH (08:17)
[2017-08-04] MEDS: busPIRone 5 MG TABLET PO SCH ×2 (08:17→13:00)
[2017-08-04] MEDS: PAROXETINE HCL 20 MG TABLET PO SCH (08:17)
[2017-08-04] MEDS: GABAPENTIN 300 MG CAPSULE PO SCH (08:17)
[2017-08-04] MEDS: THIAMINE HCL 100 MG TABLET PO SCH (08:17)
[2017-08-04] MEDS: BACLOFEN 20 MG TABLET PO SCH (08:17)
[2017-08-04] MEDS: PROPRANOLOL HCL 20 MG TABLET PO SCH (08:39)
[2017-08-04] MEDS: CARBAMIDE PEROXIDE OTIC DROP 15 ML BOTTLE EACH EAR SCH (08:39)
[2017-08-04 12:00] VITALS: BP 99/57
--- NOTE | 2017-08-04 12:55 | NUR ---
Discharge note PT has been discharged from [facility] PT is in Stable condition, VS WNL. Denies suicidal and homicidal ideations at this time. . All documentation has been completed, paperwork signed and dated. Pt left with all of her belongings, medications and prescriptions. Pt has been discharged from [facility] on 08/04/17 at 1255. has been Notified.
== END 2017-08-04 14:00 | disposition home or self-care (01) | DRG 895 ==
LOC: SRC 10:28
PROVIDERS: ADMIT Internal Medicine; ATTEND Internal Medicine
PROC: HZ2ZZZZ Detoxification Services for Substance Abuse Treatment (ICD-10-PCS; principal; 2017-07-28)
PROC: HZ31ZZZ Individual Counseling for Substance Abuse Treatment, Behavioral (ICD-10-PCS; 2017-07-29)
PROC: HZ41ZZZ Group Counseling for Substance Abuse Treatment, Behavioral (ICD-10-PCS; 2017-08-01)
DX: F10.232 Alcohol dependence with withdrawal with perceptual disturbance (principal); K85.20 Alcohol induced acute pancreatitis without necrosis or infection; E87.3 Alkalosis; F33.1 Major depressive disorder, recurrent, moderate; E83.42 Hypomagnesemia; B02.29 Other postherpetic nervous system involvement; E87.1 Hypo-osmolality and hyponatremia; F15.23 Other stimulant dependence with withdrawal; F11.23 Opioid dependence with withdrawal; K70.10 Alcoholic hepatitis without ascites; Y90.9 Presence of alcohol in blood, level not specified; R73.9 Hyperglycemia, unspecified; F17.210 Nicotine dependence, cigarettes, uncomplicated; Z79.899 Other long term (current) drug therapy; R00.0 Tachycardia, unspecified; E86.0 Dehydration; E87.6 Hypokalemia; G47.00 Insomnia, unspecified; H91.93 Unspecified hearing loss, bilateral; T14.90XS Injury, unspecified, sequela; Y04.2XXS Assault by strike against or bumped into by another person, sequela; Y07.01 Husband, perpetrator of maltreatment and neglect; F41.9 Anxiety disorder, unspecified; G24.01 Drug induced subacute dyskinesia
CPT/HCPCS: 36415; 70030-TC; 80307; 80324; 83735; 84703; 85025; 86592; 86705; 86803; 87340; 87806; 93005; 93307; A4663; G0480; J1885; J2405; J3411